=== PATIENT | male | born 1985 | race Caucasian/White ===

== ENCOUNTER 2017-10-30 13:20 | Emergency (ER) | payer OTHER ==
[~2017-10-30] VITALS: Ht 170.2 cm; Wt 68.5 kg
[2017-10-30] MEDS ORDERED: NARCAN4 MG NS (13:40)
[2017-10-30 15:32] VITALS: BP 105/62
== END 2017-10-30 15:36 | disposition home or self-care (01) ==
LOC: EME 13:20
DX: F11.10 Opioid abuse, uncomplicated (principal); G93.89 Other specified disorders of brain; R09.02 Hypoxemia; R41.82 Altered mental status, unspecified; F17.200 Nicotine dependence, unspecified, uncomplicated
CPT/HCPCS: 80048; 85027; 99281; 99284

== ENCOUNTER 2017-11-14 15:10 | Emergency (ER) | payer OTHER ==
[~2017-11-14] VITALS: Ht 157.5 cm; Wt 98.0 kg
[~2017-11-14 15:10] MED LIST: NARCAN4 MG NS
[2017-11-14 19:38] LABS: HEMATOCRIT 43.2 % (38.0-50.0); HEMOGLOBIN 14.6 G/DL (12.5-16.6); MCH 31.3 PG (29.0-34.0); MCHC 33.8 G/DL (30.0-36.0); MCV 92.7 FL (86-99); PLATELET COUNT 336 K/uL (156-360); RBC DIS.WIDTH-CV 14.2 % (11.8-14.6); RBC DIS.WIDTH-SD 48.1 % (39-53); RED BLOOD COUNT 4.66 M/uL (4.00-5.50); WHITE BLOOD COUNT 6.5 K/uL (4.1-10.2)
[2017-11-14 19:43] LABS: APPEARANCE CLEAR ((CLEAR)); BILIRUBIN NEGATIVE; BLOOD NEGATIVE; COLOR STRAW ((YELLOW)); GLUCOSE (STRIP) NEGATIVE; KETONES NEGATIVE; LEUKOCYTES NEGATIVE; NITRITE NEGATIVE; PROTEIN (STRIP) NEGATIVE; SPECIFIC GRAVITY 1.006 (1.000-1.030); UROBILINOGEN 0.2 MG/DL (0.2-1.0)
[2017-11-14 19:46] LABS: ALBUMIN 3.7 g/dL (3.2-4.8); CHLORIDE 103 mEq/L (99-109); POTASSIUM 4.1 mEq/L (3.7-5.4); SODIUM 137 mEq/L (136-147)
[2017-11-14 19:46] LABS: AMPHETAMINE NEGATIVE (500 ng/mL); BARBITURATES NEGATIVE (200 ng/mL); BENZODIAZEPINES NEGATIVE (150 ng/mL); BUPRENORPHINE NEGATIVE (10 ng/mL); COCAINE PRESUMPTIVE POSITIVE (150 ng/mL); METHADONE PRESUMPTIVE POSITIVE (200 ng/mL); METHAMPHETAMINE NEGATIVE (500 ng/mL); OPIATES (MORPHINE) NEGATIVE (100 ng/mL); OXYCODONE NEGATIVE (100 ng/mL); PHENCYCLIDINE NEGATIVE (25 ng/mL); PROPOXYPHENE NEGATIVE (300 ng/mL); THC CANNABINOIDS NEGATIVE (50 ng/mL); TRICYCLIC ANTIDEPRESSANTS NEGATIVE (300 ng/mL)
[2017-11-14 19:48] LABS: GLUCOSE 80 mg/dL (70-99)
[2017-11-14 19:49] LABS: TOTAL PROTEIN 7.8 g/dL (6.4-8.3)
[2017-11-14 19:50] LABS: TOTAL BILIRUBIN 0.6 mg/dL (0.0-1.0)
[2017-11-14 19:51] LABS: SERUM ETHYL ALCOHOL 27 mg/dL
[2017-11-14 19:52] LABS: ALKALINE PHOSPHATASE 69 IU/L (3-129); CREATININE 0.9 mg/dL (0.6-1.3); GFR ESTIMATE (CALCULATED) > 59 mL/min/ (58.99-99999)
[2017-11-14 19:53] LABS: UREA NITROGEN (BUN) 12 mg/dL (9-23)
[2017-11-14 19:54] LABS: AST (GOT) 63 IU/L (2-34)
[2017-11-14 19:55] LABS: ALT (GPT) 75 IU/L (3-49); CREATINE KINASE 433 IU/L (1-294)
[2017-11-14 19:58] LABS: TROP-I INTERPRETATION NEGATIVE; TROPONIN-I < 0.01 ng/mL (0.0-0.30)
[2017-11-15 02:08] VITALS: BP 116/63
== END 2017-11-15 02:10 | disposition home or self-care (01) ==
LOC: EME 15:10
PROVIDERS: Emergency Medicine
DX: F32.9 Major depressive disorder, single episode, unspecified (principal); F14.10 Cocaine abuse, uncomplicated; F17.200 Nicotine dependence, unspecified, uncomplicated
CPT/HCPCS: 80053; 81003; 82550; 84484; 84999; 85027; 93005; 99281; 99284; G0480

== ENCOUNTER 2017-12-01 14:01 | Emergency (ER) | payer OTHER ==
[~2017-12-01] VITALS: Ht 170.2 cm; Wt 66.9 kg
[2017-12-01] MEDS ORDERED: NARCAN4 MG NS (19:37)
[2017-12-01 19:45] VITALS: BP 108/81
== END 2017-12-01 19:45 | disposition home or self-care (01) ==
LOC: EME 14:01
DX: T40.1X1A Poisoning by heroin, accidental (unintentional), initial encounter (principal); F17.200 Nicotine dependence, unspecified, uncomplicated
CPT/HCPCS: 99281; 99284

== ENCOUNTER 2017-12-04 12:38 | Emergency (ER) | payer OTHER ==
[~2017-12-04] VITALS: Ht 162.6 cm; Wt 50.0 kg
[2017-12-04 12:42] VITALS: BP 138/76
== END 2017-12-04 12:46 ==
LOC: EME 12:38
DX: T75.4XXA Electrocution, initial encounter (principal); Y92.149 Unspecified place in prison as the place of occurrence of the external cause
CPT/HCPCS: 99281; 99283